=== PATIENT | male | born 1965 | race Caucasian/White ===

== ENCOUNTER 2016-03-04 17:45 | Emergency (ER) | payer BC, OTHER ==
[~2016-03-04] VITALS: Ht 172.7 cm; Wt 96.2 kg
[2016-03-04] MEDS ORDERED: ONDANSETRON PF 4 MG/2 ML VIAL. IV ONE (18:15)
[2016-03-04] MEDS ORDERED: FENTANYL PF 100 MCG/2 ML VIAL. IV ONE (18:15)
[2016-03-04 18:23] LABS: BASO # 0.1 x10^3/uL (0.0-0.2); BASO % 1 % (0-3); EOS % 1 % (0-3); HEMATOCRIT 43.8 % (39.0-53.0); LYMPH # 1.7 x10^3/uL (1.0-4.8); LYMPH % 20 % (24-48); MEAN CORPUSCULAR HEMOGLOBIN 31 pg (25-35); MEAN CORPUSCULAR HGB CONC 34 g/dL (31-37); MEAN CORPUSCULAR VOLUME 91 fL (79-100); MONO % 14 % (0-9); NEUT % 64 % (31-73); PLATELET COUNT 300 x10^3/uL (140-400); RED BLOOD COUNT 4.81 x10^6/uL (4.30-5.70); RED CELL DISTRIBUTION WIDTH 13.2 % (11.5-14.5); WHITE BLOOD COUNT 8.5 x10^3/uL (4.0-11.0)
[2016-03-04 18:34] LABS: CALCIUM 9.3 mg/dL (8.5-10.1); CREATININE 0.8 mg/dL (0.7-1.3); GFR 103.2
[2016-03-04 18:42] LABS: ALBUMIN 4.4 g/dL (3.4-5.0); TOTAL BILIRUBIN 0.5 mg/dL (0.2-1.0); TOTAL PROTEIN 8.8 g/dL (6.4-8.2)
[2016-03-04 19:10] LABS: BILIRUBIN,URINE NEGATIVE (NEG); GLUCOSE,URINE NEGATIVE (NEG); NITRITE,URINE NEGATIVE (NEG); PH,URINE 6.5; PROTEIN,URINE NEGATIVE (NEG-TRACE); UROBILINOGEN,URINE 0.2 mg/dL (0.2 mg/dL)
--- NOTE | 2016-03-04 19:16 | RAD ---
PROCEDURE Ultrasound of the right upper quadrant of the abdomen 03/04/2016 HISTORY Abdominal pain and bloating for 2 weeks. TECHNIQUE A real-time ultrasound examination of the right upper quadrant of the abdomen was performed. Multiple images were obtained. FINDINGS The gallbladder is well distended. No gallstones are visualized. The gallbladder wall thickness is within normal limits. No pericholecystic fluid is seen. The common bile duct measures 4 millimeters in diameter which is within normal limits. The liver is normal in size measuring 16.2 centimeters in length. No focal abnormality of the liver is seen. The pancreas is not well visualized due to overlying bowel gas. The right kidney is within normal limits. IMPRESSION Negative study. Electronically signed by: Matthias Peralta MD (Mar 04, 2016 19:14:16)
[2016-03-04 19:24] LABS: BACTERIA,URINE 0 /HPF (0-FEW); RBC,URINE 0 /HPF (0-2); WBC,URINE 0 /HPF (0-4)
--- NOTE | 2016-03-04 20:05 | PHYS DOC ---
Past Medical History Past Medical History: Hypertension Past Surgical History: Appendectomy Alcohol Use: Heavy Drug Use: None Adult General Chief Complaint Chief Complaint: ABDOMINAL PAIN HPI HPI 50-year-old male presenting the emergency department with generalized abdominal pain and bloating over the past one week. His pain is sharp nonradiating mild intermittent and without alleviating factors. He reports regular alcohol use. He denies multiple episodes of vomiting or diarrhea. He denies having multiple bowel movements today. Review of Systems Review of Systems ROS negative for fevers chills chest pain shortness of breath. All other review of systems is negative unless otherwise noted in history of present illness. Current Medications Current Medications Current Medications Medications (Trade) Dose Ordered Sig/Tom Start Time Stop Time Status Last Admin Dose Admin Fentanyl Citrate (Fentanyl 2ml Vial) 25 mcg 1X ONCE 03/04/16 18:15 03/04/16 18:16 DC Ondansetron HCl (Zofran) 4 mg 1X ONCE 03/04/16 18:15 03/04/16 18:16 DC Allergies Allergies Allergies Coded Allergies Type Severity Reaction Last Updated Verified No Known Drug Allergies 04/26/13 No Physical Exam Physical Exam Constitutional: Well developed, well nourished, no acute distress, non-toxic appearance. HENT: Normocephalic, atraumatic, bilateral external ears normal, oropharynx moist, no oral exudates, nose normal. [] Eyes: PERRLA, EOMI, conjunctiva normal, no discharge. Neck: Normal range of motion, no tenderness, supple, no stridor. [] Cardiovascular:Heart rate regular rhythm, no murmur Lungs & Thorax: Bilateral breath sounds clear to auscultation [] Abdomen: Soft nontender abdomen without rebound tenderness or guarding present. Negative McBurneys point. Negative Fried sign. No ecchymosis present. Mildly distended Skin: Warm, dry, no erythema, no rash. Back: No tenderness, no CVA tenderness. Extremities: No tenderness, no cyanosis, no clubbing, ROM intact, no edema. [] Neurologic: Alert and oriented X 3, normal motor function, normal sensory function, no focal deficits noted. Psychologic: Affect normal, judgement normal, mood normal. [] Current Patient Data Vital Signs Vital Signs Date Time Temp Pulse Resp B/P Pulse Ox O2 Delivery O2 Flow Rate FiO2 03/04/16 18:05 97.9 87 16 207/120 99 Room Air 97.9 Lab Values Laboratory Tests Test 03/04/16 18:12 03/04/16 19:00 White Blood Count 8.5x10^3/uL (4.0-11.0) Red Blood Count 4.81x10^6/uL (4.30-5.70) Hemoglobin 15.0g/dL (13.0-17.5) Hematocrit 43.8% (39.0-53.0) Mean Corpuscular Volume 91fL (79-100) Mean Corpuscular Hemoglobin 31pg (25-35) Mean Corpuscular Hemoglobin Concent 34g/dL (31-37) Red Cell Distribution Width 13.2% (11.5-14.5) Platelet Count 300x10^3/uL (140-400) Neutrophils (%) (Auto) 64% (31-73) Lymphocytes (%) (Auto) 20% (24-48) L Monocytes (%) (Auto) 14% (0-9) H Eosinophils (%) (Auto) 1% (0-3) Basophils (%) (Auto) 1% (0-3) Neutrophils # (Auto) 5.4x10^3uL (1.8-7.7) Lymphocytes # (Auto) 1.7x10^3/uL (1.0-4.8) Monocytes # (Auto) 1.2x10^3/uL (0.0-1.1) H Eosinophils # (Auto) 0.1x10^3/uL (0.0-0.7) Basophils # (Auto) 0.1x10^3/uL (0.0-0.2) Sodium Level 134mmol/L (136-145) L Potassium Level 4.0mmol/L (3.5-5.1) Chloride Level 98mmol/L (98-107) Carbon Dioxide Level 28mmol/L (21-32) Anion Gap 8 (6-14) Blood Urea Nitrogen 8mg/dL (8-26) Creatinine 0.8mg/dL (0.7-1.3) Estimated GFR (Cockcroft-Gault) 103.2 BUN/Creatinine Ratio 10 (6-20) Glucose Level 105mg/dL (70-99) H Calcium Level 9.3mg/dL (8.5-10.1) Total Bilirubin 0.5mg/dL (0.2-1.0) Aspartate Amino Transferase (AST) 59U/L (15-37) H Alanine Aminotransferase (ALT) 72U/L (16-63) H Alkaline Phosphatase 63U/L (46-116) Total Protein 8.8g/dL (6.4-8.2) H Albumin 4.4g/dL (3.4-5.0) Albumin/Globulin Ratio 1.0 (1.0-1.7) Lipase 153U/L (73-393) Urine Collection Type Unknown Urine Color Yellow Urine Clarity Clear Urine pH 6.5 Urine Specific [place] <=1.005 Urine Protein Negativemg/dL (NEG-TRACE) Urine Glucose (UA) Negativemg/dL (NEG) Urine Ketones (Stick) Negativemg/dL (NEG) Urine Blood Negative (NEG) Urine Nitrite Negative (NEG) Urine Bilirubin Negative (NEG) Urine Urobilinogen Dipstick 0.2mg/dL (0.2 mg/dL) Urine Leukocyte Esterase Negative (NEG) Urine RBC 0/HPF (0-2) Urine WBC 0/HPF (0-4) Urine Bacteria 0/HPF (0-FEW) Laboratory Tests 03/04/16 18:12 Laboratory Tests 03/04/16 18:12 EKG EKG [] Radiology/Procedures Radiology/Procedures [facility] [address] [place] [address] IMAGING REPORT Signed PATIENT: ANGELO JAIMES ACCOUNT: [id number] : 1965 LOCATION: ER AGE: 50 SEX: M EXAM STATUS: REG ER ORD. PHYSICIAN: TRANG VO MD REASON: ruq abd pain eval liver and gb PROCEDURE: ABDOMEN LTD PROCEDURE Ultrasound of the right upper quadrant of the abdomen 03/04/2016 HISTORY Abdominal pain and bloating for 2 weeks. TECHNIQUE A real-time ultrasound examination of the right upper quadrant of the abdomen was performed. Multiple images were obtained. FINDINGS The gallbladder is well distended. No gallstones are visualized. The gallbladder wall thickness is within normal limits. No pericholecystic fluid is seen. The common bile duct measures 4 millimeters in diameter which is within normal limits. The liver is normal in size measuring 16.2 centimeters in length. No focal abnormality of the liver is seen. The pancreas is not well visualized due to overlying bowel gas. The right kidney is within normal limits. IMPRESSION Negative study. Electronically signed by: Matthias Peralta MD (Mar 04, 2016 19:14:16) DICTATED and SIGNED BY: MATTHIAS PERALTA MD DATE: 03/04/161913 CC: TRANG VO MD; HETAL ANGEL MD ~ [] Course & Med Decision Making Course & Med Decision Making Pertinent Labs and Imaging studies reviewed. (See chart for details) 50-year-old male presenting to the emergency department with generalized abdominal pain. Vital signs showed hypertension otherwise unremarkable. Exam showed a nontender abdomen. Blood work obtained normal CBC. Urinalysis unremarkable. Chemistry panel mild elevation in liver enzymes likely related to alcohol use. Otherwise unremarkable. Pain controlled in the emergency department with IV medications. On reevaluation abdomen continued to be nontender to palpation. Patient reported symptomatic improvement. He was subsequent discharged home to follow-up with his PCP over the next 2 days if his symptoms did not improve. Dragon Disclaimer Dragon Disclaimer This electronic medical record was generated, in whole or in part, using a voice recognition dictation system. Departure Departure Impression: Primary Impression: Abdominal pain Disposition: ADMITTED INPATIENT Admitting Physician: Other Condition: STABLE Referrals: HETAL ANGEL MD (PCP) Patient Instructions: Abdominal Pain Additional Instructions: Thank you for allowing us to participate in your care today. Followup with your primary care physician in 3 days if your symptoms do not improve. If you do not have a primary care provider you can ask for a list of our primary care providers. Return to the emergency department you have any new or concerning findings. This should be evaluated by the primary care physician and any necessary consulting services for continued management within a few days after discharge. Return to emergency room if you have any new or concerning symptoms including but not limited to fever, chills, nausea, vomiting, intractable pain, any new rashes, chest pain, shortness of air, uncontrolled bleeding, difficulty breathing, and/or vision loss. You may have been prescribed medication that can change in your level of thinking and ability to operate machinery. These medications include hydrocodone and Ativan. Also, Benadryl has been known to do this as well. Be sure to check with your pharmacist and ask if the medications you've prescribed can affect your level of consciousness. I recommend not operating heavy machinery or driving while on medication such as these. Scripts Hydrocodone Bit/Acetaminophen (Hydrocodone-Apap 5-325 )1 Each Tablet1 Tab PO PRN Q6HRS PRN PAIN #15 TAB Be careful as this medication may cause you to be drowsy or tired. Do not drive on this medication. Prov:TRANG VO MD 03/04/16 TRANG VO MD Mar 04, 2016 20:05
[2016-03-04 21:00] VITALS: BP 186/115
[2016-03-04] MEDS ORDERED: HYDR-2666 PO (21:03)
== END 2016-03-04 21:05 | disposition home or self-care (01) ==
LOC: ER 17:45
DX: R10.84 Generalized abdominal pain (principal); I10 Essential (primary) hypertension; F10.10 Alcohol abuse, uncomplicated; Z90.49 Acquired absence of other specified parts of digestive tract; Y90.9 Presence of alcohol in blood, level not specified
CPT/HCPCS: 36415; 76705; 80053; 81001; 83690; 85027; 99285-25

== ENCOUNTER → 2021-04-13 | Outpatient (CLI) | payer BC, OTHER ==
[~2021-04-13] MED LIST: HYDR-2761 PO
--- NOTE | 2021-04-13 17:35 | KCIC ---
EXAMINATION: MRI LEFT LOWER EXTREMITY JOINT WITHOUT INDICATIONS: Left knee pain. TECHNIQUE: Multiplanar multisequence MRI of the left knee was obtained without contrast. COMPARISON: Left knee radiograph 03/24/2021 FINDINGS: MENISCI: There is a small complex tear of the body-posterior horn junction medial meniscus surfacing inferiorly. The lateral meniscus is intact. LIGAMENTS: The anterior and posterior cruciate ligaments are intact. The medial collateral ligament and lateral collateral ligament complex are intact. There is mild edema along the course of the MCL. EXTENSOR MECHANISM: The quadriceps and patellar tendons are intact. Mild edema in the suprapatellar fat pad. Retinacula are intact. BONES AND CARTILAGE: Articular cartilage is intact. Marrow signal is normal. No acute fracture. OTHER: Small joint effusion. No significant Ferrer's cyst or bursitis. Remaining tendons and muscles are intact. There is mild prepatellar edema. IMPRESSION: 1. Small complex tear of the medial meniscus. 2. Mild edema along the MCL, likely reactive to meniscal tear but could also be seen with a grade 1 M CL injury. 3. Small joint effusion. Electronically signed by: Charlotte Melo MD (04/13/2021 5:33 PM) [id number]
== END ==
LOC: KCIC MRI 15:19
PROVIDERS: ATTEND Physician Assistant
DX: S83.232A Complex tear of medial meniscus, current injury, left knee, initial encounter (principal); S83.412A Sprain of medial collateral ligament of left knee, initial encounter; R60.0 Localized edema; M25.462 Effusion, left knee; X58.XXXA Exposure to other specified factors, initial encounter; Y93.89 Activity, other specified; Y92.89 Other specified places as the place of occurrence of the external cause; Y99.8 Other external cause status
CPT/HCPCS: 73721